=== PATIENT | male | born 1990 | race American Indian/Alaskan Native ===

== ENCOUNTER 2018-01-19 17:03 | Emergency (ER) | payer SELFPAY ==
[2018-01-19 17:23] VITALS: BP 138/88
--- NOTE | 2018-01-19 18:33 | Emergency Department Report ---
ED General Adult HPI - General Chief complaint: Chest Pain Stated complaint: CHEST PAINS Time Seen by Provider: 01/19/18 18:17 Source: patient Mode of arrival: Ambulatory Limitations: No Limitations - History of Present Illness Initial comments: Patient is a 27-year-old male who is presenting with chest discomfort for the past 3-4 days. Patient states started with a cough or shortness of breath. Cough is nonproductive. Patient been taking over-the- counter cough medicines cough is decreased however the chest pain is still persistent. Patient states pain is aching sensation sometimes sharp 4 out 10 in severity. Patient is a smoker. Patient denies any nausea vomiting diarrhea fevers or chills at this time. - Related Data Previous Rx's Medication Instructions Recorded Last Taken Type Bacitracin 1 applicatio TP BID #30 oint...g. 01/19/18 Unknown Rx Clindamycin [Clindamycin CAP] 300 mg PO Q8H 7 Days cap 01/19/18 Unknown Rx predniSONE [Deltasone] 20 mg PO QDAY #5 tab 01/19/18 Unknown Rx traMADol [Ultram] 50 mg PO Q6HR PRN #12 tablet 01/19/18 Unknown Rx Allergies Allergy/AdvReac Type Severity Reaction Status Date / Time No Known Allergies Allergy Unverified 01/19/18 17:20 ED Review of Systems ROS: Stated complaint: CHEST PAINS Other details as noted in HPI Comment: All other systems reviewed and negative ED Past Medical Hx - Past Medical History Hx Seizures: Yes - Surgical History Additional Surgical History: ankle - Social History Smoking Status: Current Every Day Smoker Substance Use Type: None - Medications Home Medications: Home Medications Medication Instructions Recorded Confirmed Last Taken Type Bacitracin 1 applicatio TP BID #30 oint...g. 01/19/18 Unknown Rx Clindamycin [Clindamycin CAP] 300 mg PO Q8H 7 Days cap 01/19/18 Unknown Rx predniSONE [Deltasone] 20 mg PO QDAY #5 tab 01/19/18 Unknown Rx traMADol [Ultram] 50 mg PO Q6HR PRN #12 tablet 01/19/18 Unknown Rx ED Physical Exam - General Limitations: No Limitations General appearance: alert, in no apparent distress - Head Head exam: Present: atraumatic, normocephalic - Eye Eye exam: Present: normal appearance - ENT ENT exam: Present: mucous membranes moist - Neck Neck exam: Present: normal inspection - Respiratory Respiratory exam: Present: normal lung sounds bilaterally. Absent: respiratory distress, wheezes, rales, rhonchi - Cardiovascular Cardiovascular Exam: Present: regular rate, normal rhythm. Absent: systolic murmur, diastolic murmur, rubs, gallop - GI/Abdominal GI/Abdominal exam: Present: soft, normal bowel sounds. Absent: distended, tenderness, guarding, rebound - Rectal Rectal exam: Present: deferred - exam: Absent: normal inspection (has some mild folliculitis within the pubic hair at the base of the penis) - Extremities Exam Extremities exam: Present: normal inspection - Back Exam Back exam: Present: normal inspection - Neurological Exam Neurological exam: Present: alert, oriented X3 - Psychiatric Psychiatric exam: Present: normal affect, normal mood - Skin Skin exam: Present: warm, dry, intact, normal color. Absent: rash ED Course Vital Signs 01/19/18 01/19/18 17:20 18:12 Temperature 98.4 F Pulse Rate 82 Respiratory 16 16 Rate Blood Pressure 138/88 O2 Sat by Pulse 96 Oximetry ED Medical Decision Making - EKG Data -: EKG Interpreted by [place] EKG shows normal: sinus rhythm, axis, intervals, QRS complexes, ST-T waves Rate: normal - EKG Data Interpretation: normal EKG - Medical Decision Making Patient be treated for costochondritis patient also be started on antibiotics for folliculitis Critical care attestation.: If time is entered above; I have spent that time in minutes in the direct care of this critically ill patient, excluding procedure time. ED Disposition Clinical Impression: Costochondral chest pain, Folliculitis Disposition: - TO HOME OR SELFCARE Is pt being admited?: No Does the pt Need Aspirin: No Condition: Stable Instructions: Costochondritis (ED), Folliculitis (ED) Referrals: PRIMARY CARE, [Primary Care Provider] - 3-5 Days Time of Disposition: 18:33
== END 2018-01-19 18:41 | disposition home or self-care (01) ==
LOC: ED 17:03
DX: M94.0 Chondrocostal junction syndrome [Tietze] (principal); L73.9 Follicular disorder, unspecified; F17.200 Nicotine dependence, unspecified, uncomplicated
CPT/HCPCS: 93005; 93010; 99282